=== PATIENT | male | born 1980 | race Caucasian/White ===

== ENCOUNTER 2019-01-11 14:04 | Inpatient (IN) ==
[2019-01-11 14:58] LABS: Basophils % 0.7 % (0.0-0.8); Eosinophils # 0.1 10*3/uL (0.0-0.87); Eosinophils % 1.9 % (0.00-10.9); Hematocrit 31.7 VOL% (42.0-52.0); Hemoglobin 10.8 GM/DL (14.0-18.0); Immature Granulocytes % 0.5 %; Immature Granulocytes Absolute 0.02 #; Lymphocytes # 0.6 10*3/uL (1.4-4.0); Mean Corpuscular HGB Conc 34.1 GM/DL (32-36); Mean Corpuscular Volume 93.2 FL (87-102); Mean Platelet Volume 9.7 FL (9.6-12.0); Monocytes % 9.2 % (1.7-12.7); Neutrophils % 73.7 % (38.7-73.9); Platelet Count 160 T/CUMM (130-400); Red Cell Distribution Width 13.3 % (9.3-17.3); White Blood Count 4.2 T/CUMM (4-12)
[2019-01-11 15:30] LABS: Albumin 3.2 G/DL (3.4-5.0); Bilirubin,Total 1.4 MG/DL (0.2-1.0); Calcium 9.3 MG/DL (8.5-10.1); Osmolality,Calculated 281.4 MOS/KG (273-304); Total Protein 6.5 G/DL (6.4-8.3)
[2019-01-11 16:37] LABS: Apearance,Urine CLEAR (Clear); Bilirubin,Urine Negative (Negative); Blood, Urine Negative (Negative); Glucose,Urine (UA) Negative (Negative); Ketones,Urine Negative (Negative); Mucus,Urine Occasional /LPF (Occasional); Nitrite,Urine Negative (Negative); Protein,Urine Negative; RBC,Urine 2 /HPF (0-4); Urine Color Yellow (Yellow); Urine Specific Gravity 1.008 (1.001-1.035); Urine Urobilinogen < 2.0 EU/DL (0.2-1.0); WBC,Urine 1 /HPF (0-6)
[2019-01-11] MEDS ORDERED: ACETAMINOPHEN 325 MG TABLET PO PRN (18:57)
[2019-01-11] MEDS: SODIUM CHLORIDE 0.9% 1,000 ML IV SCH (22:20)
[2019-01-11] MEDS: ACYCLOVIR 200 MG CAPSULE PO SCH (22:26)
[2019-01-11] MEDS: VANCOMYCIN INJ 1,000 MG in SODIUM CHLORIDE 0.9% 250 ML IV SCH (22:26)
[2019-01-11] MEDS: MEROPENEM 500 MG in SODIUM CHLORIDE 0.9% 100 ML IV SCH (23:22)
[2019-01-12] MEDS: MEROPENEM 500 MG in SODIUM CHLORIDE 0.9% 100 ML IV SCH ×4 (05:21→23:33)
[2019-01-12 05:34] LABS: Basophils % 0.6 % (0.0-0.8); Eosinophils # 0.3 10*3/uL (0.0-0.87); Eosinophils % 6.1 % (0.00-10.9); Hematocrit 32.3 VOL% (42.0-52.0); Hemoglobin 10.5 GM/DL (14.0-18.0); Immature Granulocytes % 0.4 %; Immature Granulocytes Absolute 0.02 #; Lymphocytes # 0.7 10*3/uL (1.4-4.0); Mean Corpuscular HGB Conc 32.5 GM/DL (32-36); Mean Corpuscular Volume 95.3 FL (87-102); Mean Platelet Volume 9.8 FL (9.6-12.0); Monocytes % 5.7 % (1.7-12.7); Neutrophils % 72.2 % (38.7-73.9); Platelet Count 162 T/CUMM (130-400); Red Blood Count 3.39 MC/CUMM (3.8-5.5); Red Cell Distribution Width 13.4 % (9.3-17.3); White Blood Count 4.7 T/CUMM (4-12)
[2019-01-12 05:58] LABS: Albumin 2.7 G/DL (3.4-5.0); Bilirubin,Total 1.9 MG/DL (0.2-1.0); Calcium 8.8 MG/DL (8.5-10.1); Osmolality,Calculated 282.1 MOS/KG (273-304); Total Protein 5.8 G/DL (6.4-8.3)
[2019-01-12] MEDS: VANCOMYCIN INJ 1,000 MG in SODIUM CHLORIDE 0.9% 250 ML IV SCH ×2 (09:23→22:39)
[2019-01-12] MEDS: MAGNESIUM GLUCONATE 500 MG TABLET PO SCH (09:23)
[2019-01-12] MEDS: ACYCLOVIR 200 MG CAPSULE PO SCH ×2 (09:23→20:46)
[2019-01-12] MEDS: PANTOPRAZOLE 40 MG TABLET PO SCH (09:23)
[2019-01-12] MEDS: SODIUM CHLORIDE 0.9% 1,000 ML IV SCH (14:56)
[2019-01-13] MEDS: MEROPENEM 500 MG in SODIUM CHLORIDE 0.9% 100 ML IV SCH ×4 (05:38→22:48)
[2019-01-13] MEDS: MAGNESIUM GLUCONATE 500 MG TABLET PO SCH (09:33)
[2019-01-13] MEDS: ACYCLOVIR 200 MG CAPSULE PO SCH ×2 (09:33→20:41)
[2019-01-13] MEDS: PANTOPRAZOLE 40 MG TABLET PO SCH (09:33)
[2019-01-13] MEDS: VANCOMYCIN INJ 1,000 MG in SODIUM CHLORIDE 0.9% 250 ML IV SCH ×2 (09:34→21:18)
[2019-01-13] MEDS: SODIUM CHLORIDE 0.9% 1,000 ML IV SCH (20:40)
[2019-01-14 04:53] LABS: Basophils % 0.4 % (0.0-0.8); Eosinophils # 0.3 10*3/uL (0.0-0.87); Eosinophils % 5.6 % (0.00-10.9); Hematocrit 30.2 VOL% (42.0-52.0); Hemoglobin 9.9 GM/DL (14.0-18.0); Immature Granulocytes % 0.2 %; Immature Granulocytes Absolute 0.01 #; Lymphocytes # 0.8 10*3/uL (1.4-4.0); Lymphocytes % 15.1 % (21.2-54.2); Mean Corpuscular HGB Conc 32.8 GM/DL (32-36); Mean Corpuscular Volume 95.3 FL (87-102); Mean Platelet Volume 10.2 FL (9.6-12.0); Neutrophils % 72.7 % (38.7-73.9); Platelet Count 142 T/CUMM (130-400); Red Blood Count 3.17 MC/CUMM (3.8-5.5); Red Cell Distribution Width 13.2 % (9.3-17.3); White Blood Count 5.2 T/CUMM (4-12)
[2019-01-14 05:26] LABS: Calcium 8.3 MG/DL (8.5-10.1); Osmolality,Calculated 275.5 MOS/KG (273-304)
[2019-01-14] MEDS: MEROPENEM 500 MG in SODIUM CHLORIDE 0.9% 100 ML IV SCH ×4 (05:39→23:10)
[2019-01-14 09:08] LABS: Albumin 2.6 G/DL (3.4-5.0); Bilirubin,Direct 0.29 MG/DL (0.0-0.20); Bilirubin,Indirect 0.9 MG/DL (0.0-1.0); Bilirubin,Total 1.2 MG/DL (0.2-1.0); Total Protein 5.6 G/DL (6.4-8.3)
[2019-01-14] MEDS: ACYCLOVIR 200 MG CAPSULE PO SCH ×2 (09:22→21:52)
[2019-01-14] MEDS: PANTOPRAZOLE 40 MG TABLET PO SCH (09:22)
[2019-01-14] MEDS: MAGNESIUM GLUCONATE 500 MG TABLET PO SCH (09:22)
[2019-01-14] MEDS: VANCOMYCIN INJ 1,000 MG in SODIUM CHLORIDE 0.9% 250 ML IV SCH ×2 (09:23→22:01)
[2019-01-14] MEDS: SODIUM CHLORIDE 0.9% 1,000 ML IV SCH ×3 (22:15→23:45)
[2019-01-15 04:44] LABS: Basophils % 0.4 % (0.0-0.8); Eosinophils # 0.4 10*3/uL (0.0-0.87); Eosinophils % 8.2 % (0.00-10.9); Hematocrit 29.7 VOL% (42.0-52.0); Hemoglobin 9.8 GM/DL (14.0-18.0); Immature Granulocytes % 0.4 %; Immature Granulocytes Absolute 0.02 #; Lymphocytes # 0.9 10*3/uL (1.4-4.0); Lymphocytes % 19.4 % (21.2-54.2); Mean Corpuscular Volume 94.9 FL (87-102); Mean Platelet Volume 10.2 FL (9.6-12.0); Monocytes % 5.7 % (1.7-12.7); Neutrophils % 65.9 % (38.7-73.9); Platelet Count 140 T/CUMM (130-400); Red Blood Count 3.13 MC/CUMM (3.8-5.5); Red Cell Distribution Width 13.3 % (9.3-17.3); White Blood Count 4.8 T/CUMM (4-12)
[2019-01-15] MEDS: MEROPENEM 500 MG in SODIUM CHLORIDE 0.9% 100 ML IV SCH ×4 (05:02→22:15)
[2019-01-15 05:10] LABS: Albumin 2.4 G/DL (3.4-5.0); Bilirubin,Direct 0.23 MG/DL (0.0-0.20); Bilirubin,Indirect 0.8 MG/DL (0.0-1.0); Calcium 8.9 MG/DL (8.5-10.1); Osmolality,Calculated 281.1 MOS/KG (273-304); Total Protein 5.1 G/DL (6.4-8.3)
[2019-01-15] MEDS: SODIUM CHLORIDE 0.9% 1,000 ML IV SCH ×2 (05:36→12:10)
[2019-01-15] MEDS: VANCOMYCIN INJ 1,000 MG in SODIUM CHLORIDE 0.9% 250 ML IV SCH ×2 (09:02→21:07)
[2019-01-15] MEDS: MAGNESIUM GLUCONATE 500 MG TABLET PO SCH (09:03)
[2019-01-15] MEDS: ACYCLOVIR 200 MG CAPSULE PO SCH ×2 (09:03→21:07)
[2019-01-15] MEDS: PANTOPRAZOLE 40 MG TABLET PO SCH (09:03)
[2019-01-15] MEDS ORDERED: FUROSEMIDE 20 MG/2 ML VIAL IV ONE (14:29)
[2019-01-16 03:46] LABS: Basophils % 0.5 % (0.0-0.8); Eosinophils # 0.5 10*3/uL (0.0-0.87); Eosinophils % 11.1 % (0.00-10.9); Hematocrit 30.5 VOL% (42.0-52.0); Immature Granulocytes % 0.5 %; Immature Granulocytes Absolute 0.02 #; Lymphocytes # 0.6 10*3/uL (1.4-4.0); Lymphocytes % 15.3 % (21.2-54.2); Mean Corpuscular HGB Conc 32.8 GM/DL (32-36); Mean Corpuscular Volume 95.3 FL (87-102); Mean Platelet Volume 10.7 FL (9.6-12.0); Monocytes % 5.3 % (1.7-12.7); Neutrophils % 67.3 % (38.7-73.9); Platelet Count 145 T/CUMM (130-400); Red Cell Distribution Width 13.2 % (9.3-17.3); White Blood Count 4.1 T/CUMM (4-12)
[2019-01-16 04:11] LABS: Albumin 2.5 G/DL (3.4-5.0); Bilirubin,Direct 0.15 MG/DL (0.0-0.20); Bilirubin,Indirect 0.8 MG/DL (0.0-1.0); Bilirubin,Total 0.9 MG/DL (0.2-1.0); Osmolality,Calculated 283.1 MOS/KG (273-304); Total Protein 5.6 G/DL (6.4-8.3)
[2019-01-16 04:26] LABS: Eosinophils 12 % (0-10); Hypochromasia Slight; Lymphocytes 16 % (20-55); Platelet Estimate Decreased; Segmented Neutrophils 66 % (50-85); Total Cells Counted 100
[2019-01-16] MEDS: MEROPENEM 500 MG in SODIUM CHLORIDE 0.9% 100 ML IV SCH ×4 (05:27→22:39)
[2019-01-16] MEDS: MAGNESIUM GLUCONATE 500 MG TABLET PO SCH (08:40)
[2019-01-16] MEDS: ACYCLOVIR 200 MG CAPSULE PO SCH ×2 (08:41→21:06)
[2019-01-16] MEDS: PANTOPRAZOLE 40 MG TABLET PO SCH (08:41)
[2019-01-17 04:45] LABS: Basophils % 0.6 % (0.0-0.8); Eosinophils # 0.4 10*3/uL (0.0-0.87); Eosinophils % 11.1 % (0.00-10.9); Hematocrit 32.4 VOL% (42.0-52.0); Hemoglobin 10.6 GM/DL (14.0-18.0); Lymphocytes # 0.4 10*3/uL (1.4-4.0); Lymphocytes % 12.8 % (21.2-54.2); Mean Corpuscular HGB Conc 32.7 GM/DL (32-36); Mean Corpuscular Volume 94.2 FL (87-102); Mean Platelet Volume 10.3 FL (9.6-12.0); Monocytes % 4.1 % (1.7-12.7); Neutrophils % 71.4 % (38.7-73.9); Platelet Count 163 T/CUMM (130-400); Red Blood Count 3.44 MC/CUMM (3.8-5.5); Red Cell Distribution Width 13.2 % (9.3-17.3); White Blood Count 3.4 T/CUMM (4-12)
[2019-01-17] MEDS: MEROPENEM 500 MG in SODIUM CHLORIDE 0.9% 100 ML IV SCH ×2 (05:01→12:01)
[2019-01-17 05:07] LABS: Eosinophils 15 % (0-10); Hypochromasia 1+; Lymphocytes 16 % (20-55); Platelet Estimate Adequate; Segmented Neutrophils 67 % (50-85); Total Cells Counted 100
[2019-01-17 05:14] LABS: Calcium 8.8 MG/DL (8.5-10.1); Osmolality,Calculated 278.5 MOS/KG (273-304)
[2019-01-17 08:25] LABS: Albumin 2.6 G/DL (3.4-5.0); Bilirubin,Total 0.6 MG/DL (0.2-1.0); Calcium 9.1 MG/DL (8.5-10.1); Osmolality,Calculated 282.1 MOS/KG (273-304); Total Protein 5.5 G/DL (6.4-8.3)
[2019-01-17] MEDS: PANTOPRAZOLE 40 MG TABLET PO SCH (08:42)
[2019-01-17] MEDS: ACYCLOVIR 200 MG CAPSULE PO SCH (08:42)
[2019-01-17] MEDS: MAGNESIUM GLUCONATE 500 MG TABLET PO SCH (08:42)
[2019-01-17 12:18] VITALS: BP 100/64
== END 2019-01-17 12:35 | disposition home or self-care (01) | DRG 840 ==
LOC: N.ED 14:04 → N.EDINP 18:28 → SUATTDRO 18:28 → N.4E 18:38
PROVIDERS: ADMIT Internal Medicine; ATTEND Internal Medicine